=== PATIENT | female | born 1975 | race Hispanic/Latino ===

== ENCOUNTER 2017-01-14 03:53 | Outpatient (CLI) | payer BC | END 2017-01-14 03:54 | disposition home or self-care (01) | LOC: BICULT 03:53 | PROVIDERS: ATTEND Family Medicine | DX: Z53.9 Procedure and treatment not carried out, unspecified reason (principal) ==

== ENCOUNTER 2017-08-12 13:27 | Outpatient (CLI) | payer BC | END 2017-08-12 13:28 | disposition home or self-care (01) | LOC: BICULT 13:27 | PROVIDERS: ATTEND Family Medicine | DX: N92.0 Excessive and frequent menstruation with regular cycle (principal) | CPT/HCPCS: 76856 ==

== ENCOUNTER 2017-11-26 10:10 | Emergency (ER) | payer BC ==
[2017-11-26 10:53] LABS: #Basophils 0.1 thou/uL (0.0-0.2); #Eosinphils 0.1 thou/uL (0.0-0.7); #Neutrophils 6.1 thou/uL (1.40-6.50); %Basophils 0.8 % (0.0-1.0); %Eosinophils 1.5 % (0.0-10.0); %Lymphocytes 21.2 % (21.0-51.0); %Monocytes 10.4 % (0.0-10.0); Hemoglobin 12.6 g/dL (12.0-16.0); Mean Corpuscular HGB CONC 33.9 g/dL (32.0-36.0); Mean Corpuscular Hemoglobin 31.4 pg (27.0-31.0); Mean Corpuscular Volume 92.7 fL (78.0-98.0); Mean Platelet Volume 6.5 fL (7.4-10.4); Platelet Count 262 thou/uL (130-400); RBC Distribution Width 11.9 % (11.5-14.5); Red Blood Cell (RBC) Count 4.01 mill/uL (4.20-5.40); White Blood Cell (WBC) Count 9.2 thou/uL (4.8-10.8)
[2017-11-26] MEDS ORDERED: Ketorolac Tromethamine 60 MG/2 ML VIAL ONE (11:02)
[2017-11-26] MEDS ORDERED: Dexamethasone 4 MG TAB ONE (11:02)
[2017-11-26 11:12] LABS: ALT (SGPT) 16 U/L (8-55); AST (SGOT) 13 U/L (5-34); Albumin 3.9 g/dL (3.5-5.0); Alkaline Phosphatase 88 U/L (40-150); Anion Gap 10 mmol/L (10-20); BUN (Urea Nitrogen) 6 mg/dL (7.0-18.7); Bilirubin, Total 0.5 mg/dL (0.2-1.2); Calc. Creatinine Clearance 0 mL/min (70-130); Carbon Dioxide 25 mmol/L (22-29); Chloride 105 mmol/L (98-107); Estimated GFR-MDRD 74; Globulin 3.5 g/dL (2.4-3.5); Glucose 121 mg/dL (70-105); Potassium 3.9 mmol/L (3.5-5.1); Protein, Total 7.4 g/dL (6.0-8.3); Sodium 136 mmol/L (136-145)
[2017-11-26] MEDS ORDERED: Dexamethasone 10 MG/ML VIAL ONE (11:12)
[2017-11-26] MEDS ORDERED: Lorazepam 1 MG TAB ONE (12:30)
[2017-11-26 12:33] LABS: Bilirubin Negative (Negative); Blood, Urine Negative (Negative); Clarity CLEAR (Clear); Glucose, Urine (Dipstick) Negative (Negative); Leukocyte Negative (Negative); Nitrite Negative (Negative); Protein, Urine (Dipstick) Negative (Neg-Trace); Specific Gravity, Urine 1.013 (1.002-1.036); pH, Urine 5.5 (5.0-9.0)
[2017-11-26 12:34] LABS: Pregnancy Test - Urine (BHCG) Negative (Negative)
[2017-11-26 12:35] LABS: Pregu Control Background? CLEAR/WHITE (CLR/WHITE); Pregu Control Bar Appear? YES (CONTROL BAR); Specific Gravity 1.012 (1.002-1.036)
[2017-11-26] MEDS ORDERED: Ondansetron PF 4 MG/2 ML Vial ONE (12:59)
--- NOTE | 2017-11-26 13:56 | CT ---
CT FACE WITH CONTRAST: INDICATIONS: Left-sided facial swelling. FINDINGS: There is inflammatory stranding surround the left parotid gland. The left parotid gland is slightly hypertrophied in relationship to the right. There are numerous enlarged lymph nodes involving the le ft parotid gland. One is seen within the superficial lobe on image 37 of series 2, measuring 1.2 cm. An additional is seen within the lower deep lobe, measuring 1.1 cm, on image 50 of series 2. There is an enlarged left 1B lymph node, measuring 1.3 cm. There is some reticulation and thickening of t he overlying left aspect of the platysma. No drainable fluid collection is evident. The visualized intracranial contents, orbits, and paranasal sinuses are clear. The mastoid air cells are clear. No acute osseous abnormality is evident. No visible stone is seen along the course of Stensen's duct. IMPRESSION: 1. Left-sided unilateral parotitis without evidence of obstructing stone. 2. Suspected reactive lymphadenopathy of the neck. POS: DELMY
[2017-11-26] MEDS ORDERED: ISOVUE-370 76%-LOCM 1 ML ONE (16:07)
== END 2017-11-26 13:59 | disposition home or self-care (01) ==
LOC: ERS 10:10
DX: K11.20 Sialoadenitis, unspecified (principal); E03.9 Hypothyroidism, unspecified; F41.9 Anxiety disorder, unspecified; Z79.899 Other long term (current) drug therapy
CPT/HCPCS: 70487; 80053; 81003; 81025; 85025; 96372; J1100; J1885; J2405; J8540

== ENCOUNTER 2017-12-10 10:37 | Outpatient (CLI) | payer BC ==
[2017-12-10 11:02] LABS: Mean Corpuscular HGB CONC 33.2 g/dL (32.0-36.0); Mean Corpuscular Hemoglobin 30.9 pg (27.0-31.0); Mean Corpuscular Volume 93.3 fL (78.0-98.0); Mean Platelet Volume 6.4 fL (7.4-10.4); Platelet Count 359 thou/uL (130-400); Red Blood Cell (RBC) Count 4.19 mill/uL (4.20-5.40)
[2017-12-10 11:26] LABS: BHCG - Serum Negative (NEGATIVE); Pregs Control Background? CLEAR/WHITE (CLR/WHITE); Pregs Control Bar Appear? YES (CONTROL BAR)
== END 2017-12-10 10:38 | disposition home or self-care (01) ==
LOC: LABBT 10:37
PROVIDERS: ATTEND Obstetrics & Gynecology
DX: Z01.812 Encounter for preprocedural laboratory examination (principal); N92.0 Excessive and frequent menstruation with regular cycle
CPT/HCPCS: 84703; 85027; 86850; 86900; 86901

== ENCOUNTER 2017-12-10 11:00 | Inpatient (IN) | payer BC ==
[2017-12-10 11:17] VITALS: BMI 37.8
--- NOTE | 2017-12-10 12:08 | HP ---
: 1975 DATE OF PROCEDURE: 12/16/2017 HISTORY OF PRESENT ILLNESS: Ms. Rose is a 42-year-old Latin-[place] female G0 with a long history of heavy menstrual bleeding. She has used oral contraceptive patch Ortho Evra and has continued to s aturate a pad hourly on her heavy days. She has had a normal transvaginal ultrasound evaluation of t he uterus 08/12/2017 with no abnormalities noted. No adnexal masses seen. Her Pap and HPV were also normal. She desires no more menses nor . She was offered endometrial ablation, but was no t guaranteed amenorrhea with this which she strongly desires. PAST MEDICAL HISTORY: Hypothyroidism. PAST SURGICAL HISTORY: Cholecystectomy and knee surgery. SOCIAL HISTORY: She is a nonsmoker. No excessive alcohol use. FAMILY HISTORY: Diabetes in her siblings and father and hypertension in her brother. ALLERGIES: She has allergies to a PENICILLIN which causes respiratory issues. PHYSICAL EXAMINATION: VITAL SIGNS: Height is 5 feet 4 inches, weight 224 pounds with a BMI of 38.4, blood pressure is norm otensive 120/74, pulse 82, respirations 18. HEENT: Within normal limits. NECK: Supple, no thyromegaly or masses. CHEST: Clear to auscultation. HEART: Regular rate and rhythm. S1, S2 heart sounds. ABDOMEN: Soft, nontender, nondistended. No palpable masses. PELVIC: Vulva and vagina had no lesions. Bladder and urethra with normal meatus. No urethral disch arge or mass. No bladder tenderness. Vagina had no lesions. No cystocele or rectocele. Cervix was grossly normal. No discharge or cervical motion tenderness. Uterus is small, nontender. Adnexa we re nontender with no masses. ASSESSMENT: This is a 42-year-old female with menorrhagia unresponsive to medical man agement strongly desires amenorrhea state. PLAN: The plan is to proceed with robotic total laparoscopic hysterectomy with bilateral salpingecto my. Risks and benefits of procedure discussed in detail. Set for surgery on 12/16/2017.
[2017-12-16] MEDS ORDERED: CeleCOXIB 100 MG CAP ONE (06:09)
[2017-12-16] MEDS ORDERED: Famotidine/PF 20 mg/2ml Vial ONE (06:10)
[2017-12-16] MEDS ORDERED: Gabapentin 300 MG CAP ONE (06:10)
[2017-12-16] MEDS ORDERED: Clindamycin/D5W 900 mg/50 ml Premix Bag ONE (06:11)
[2017-12-16] MEDS ORDERED: Levofloxacin 500 mg/D5W 100 ml Premix Bag ONE (06:11)
[2017-12-16] MEDS ORDERED: Scopolamine 1.5 mg/72 hour Patch ONE (06:45)
[2017-12-16] MEDS ORDERED: Fentanyl 100 MCG/2 ML VIAL ONE ×3 (06:57→11:07)
[2017-12-16] MEDS ORDERED: Bupivacaine HCl 0.5%/Epinephrine 1:200,000/PF 30 ml Vial ONE (06:58)
[2017-12-16] MEDS ORDERED: Midazolam HCl 2 mg/2 ml Vial ONE (07:11)
[2017-12-16] MEDS ORDERED: Meperidine HCl/PF 25 MG/ML VIAL SLOW IVP PRN (10:06)
[2017-12-16] MEDS ORDERED: Promethazine HCl 25 MG/ML VIAL SLOW IVP PRN (10:06)
[2017-12-16] MEDS ORDERED: Promethazine HCl 25 MG/ML VIAL IM PRN ×2 (10:06→12:31)
[2017-12-16] MEDS ORDERED: HYDROmorphone 2 MG/ML VIAL SLOW IVP PRN (10:06)
--- NOTE | 2017-12-16 11:09 | OP ---
DATE OF PROCEDURE: 12/16/2017 PREOPERATIVE DIAGNOSES: 1. A 42-year-old female, G0 with menorrhagia with failed medical management. 2. Desires definitive surgical therapy. PROCEDURE PERFORMED: Robotic total laparoscopic hysterectomy with bilateral salpingectomy. SURGEON: Blanca Michael M.D. PILOT CONTROL OPERATOR: Sanchez Weir D.O. ANESTHESIA: General endotracheal. ESTIMATED BLOOD LOSS: 25 mL. COMPLICATIONS: None. COUNTS: Correct x2. ANTIBIOTICS: Two grams Ancef instrumentation manager to the OR. FINDINGS: 1. Normal-appearing bilateral fallopian tubes and ovaries. 2. Globular shaped uterus suggestive of adenomyosis. 3. Clear urine present in Huang catheter post-procedure and bilateral ureteral peristalsis visualize d post-procedure. DISPOSITION: To the recovery room stable. DESCRIPTION OF OPERATIVE PROCEDURE: The patient previously received informed consent in regards to daisy umana. She was taken back to the operating room where she received a general endotracheal anestheti c agent without complications. Then, she was placed in the dorsal lithotomy position with use of All en stirrups and prepped and draped in usual sterile fashion. A sidearm speculum was placed in the va elias after Huang catheter had been placed. The anterior lip of cervix grasped with a single-tooth te naculum. The uterus sounded to 8 cm and a size 8 cm BRII uterine manipulator with a 3.5 cm cervical cup was then chosen and placed in the usual fashion. Tenaculum and speculum were then removed. Atte ntion was then turned to the abdomen where perspective trocar sites were infiltrated with 0.5% Marcai ne with epinephrine. A 12 mm supraumbilical incision was made. Veress needle was entered into the a bdominal cavity and the patient's abdomen was insufflated after appropriate pressures were noted to a patient pressure of 15, approximately 4 liters of carbon dioxide gas. A size 12 mm trocar was then placed in the supraumbilical incision site. The robotic laparoscope was introduced through the troca r sleeve confirming proper entry. Additional bilateral lower quadrant 8 mm trocars were placed under laparoscopic guidance along with the right upper quadrant 11 mm trocar. The patient was in the [place] position, the robot was docked in usual fashion. I proceeded to carry out the surgical pro cedure from the operative console while my assistants remained at the bedside. The uterus was elevat ed from the pelvis with the previously mentioned findings. The left fallopian tube was grasped by my dental assistant instructor with atraumatic grasper and then I bipolar fenestrate cauterized the mesosalpinx starting from the fimbria towards the cornua. The mesosalpinx was incised with monopolar scissors and the tub e was then removed through the right upper quadrant port. The left uterine ovarian ligament was then coagulated and transected and then serial coagulation bipolar fenestrated cautery to the left round ligament was carried out with the incisions incising and excision into the left round ligament was re ached. It was transected and then the anterior leaf of the broad ligament was entered. The vesicout erine peritoneum was then incised in a layering technique dropping the bladder safely past the cervic al vaginal angle that was visualized by indention of the cervical cup. The left uterine vessels were skeletonized and coagulated internal cervical os region. This was carried out in likewise fashion o n the right side of the uterus again coagulating the mesosalpinx and transecting it, removing the rig ht fallopian tube, then coagulating the right uterine ovarian ligament, transecting it with serial co agulation and transection to the right round ligament being reached. Again, the anterior leaf of the broad ligament was entered and the vesicouterine peritoneum was incised in a layering technique drop ping again the bladder past the cervical vaginal angle. The right uterine vessels again were skeleto nized and coagulated internal cervical os. The anterior colpotomy was then created from 12 to 3 and 12 and 9 o'clock position, coagulating the uterine vessels in the 3 and 9 o'clock position again comp leting the posterior colpotomy from 6 to 3 and 6 to 9 in likewise fashion. The specimen was then del ivered into the vaginal vault. The vaginal cuff was closed after the monopolar scissors were switche d out with an [employer] needle explosives truck driver. The vaginal cuff was closed in full thickness closure starting at the right angle towards the left angle and back towards the midline with a Stratafix suture. Hemost asis was confirmed. The pelvis was irrigated with saline and all the pedicle sites were confirmed to be hemostatic. The trocar sleeves were then removed after the robot was undocked. A deep stitch of 0 Vicryl was placed in a [id number] stitch fashion and the fascial defect in the umbilicus and the remainder of the trocar sites were closed with 4-0 Monocryl with Dermabond. The specimen had bee n removed from the vagina. The vaginal cuff was inspected and hemostasis confirmed, but there was so me bleeding from some lacerations from removal of the uterine vessels in the posterior introitus in t he right opening of the vagina at approximately 2 o'clock in [id number] sutures of 3-0 chromic w ere placed under direct visualization securing hemostasis. The Huang was draining clear urine. The patient was awakened from anesthesia and transferred to the recovery in stable condition.
[2017-12-16] MEDS ORDERED: traMADol HCl 50 MG TAB PO PRN ×2 (12:31)
[2017-12-16] MEDS ORDERED: Simethicone Chewable 80 MG TAB PO PRN (12:31)
[2017-12-16] MEDS ORDERED: diphenhydrAMINE 25 MG CAP PO PRN (12:31)
[2017-12-16] MEDS ORDERED: Ondansetron PF 4 MG/2 ML Vial ONE (15:01)
[2017-12-16] MEDS ORDERED: Metoclopramide HCl 10 MG/2 ML VIAL ONE (15:01)
[2017-12-16] MEDS ORDERED: Ketorolac Tromethamine 30 MG/ML VIAL ONE (15:01)
[2017-12-16] MEDS ORDERED: Lidocaine 1% PF 5 ML VIAL ONE (15:01)
[2017-12-16] MEDS ORDERED: Glycopyrrolate 0.2 MG/ML 5 ML SYRINGE ONE (15:01)
[2017-12-16] MEDS ORDERED: ePHEDrine/0.9% NaCl/PF SYRINGE 50 mg/10 ml ONE (15:01)
[2017-12-16] MEDS ORDERED: PROPOFOL 200 MG/20 ML VIAL ONE (15:01)
[2017-12-16] MEDS: Ketorolac Tromethamine 30 MG/ML VIAL IVP SCH ×2 (15:07→20:44)
[2017-12-16] MEDS: Lactated Ringer's 1,000 ML IV SCH ×2 (15:11→20:49)
[2017-12-16] MEDS: Ondansetron PF 4 MG/2 ML Vial IVP PRN ×2 (15:13→20:44)
[2017-12-16] MEDS ORDERED: Hydrocodone-Acetamin 15 ML UDCUP PO PRN ×2 (16:40→16:41)
[2017-12-16] MEDS ORDERED: Acetaminophen 1,000 MG in Premix Bag 1 BAG IVPB PRN (16:42)
[2017-12-16] MEDS ORDERED: Ibuprofen 800 MG TAB PO SCH (21:00)
[2017-12-17] MEDS: Ketorolac Tromethamine 30 MG/ML VIAL IVP SCH ×2 (01:09→09:15)
[2017-12-17] MEDS: Lactated Ringer's 1,000 ML IV SCH (04:01)
[2017-12-17 05:55] LABS: Hemoglobin 11.2 g/dL (12.0-16.0); Mean Corpuscular HGB CONC 32.2 g/dL (32.0-36.0); Mean Corpuscular Hemoglobin 30.5 pg (27.0-31.0); Mean Corpuscular Volume 94.6 fL (78.0-98.0); Mean Platelet Volume 7.1 fL (7.4-10.4); Platelet Count 285 thou/uL (130-400); RBC Distribution Width 12.5 % (11.5-14.5); Red Blood Cell (RBC) Count 3.66 mill/uL (4.20-5.40); White Blood Cell (WBC) Count 5.7 thou/uL (4.8-10.8)
[2017-12-17] MEDS ORDERED: Levothyroxine 150 MCG TAB PO SCH (06:00)
--- NOTE | 2017-12-17 07:52 | PDOC.EVN ---
Event Note - Event Note Event Note: Good pain control. Tolerating diet. Voiding. O:AFVSS HCT 35% trochar sites clean and ry. Active bowel sounds. A/P post op day 1 from robotic tlh. Doing well. D/c home with f/u in 2 and 6 weeks.
[2017-12-17 08:26] VITALS: BP 131/62; TEMP 98.3
--- NOTE | 2017-12-21 15:24 | DIS ---
DATE OF ADMISSION: 12/16/2017 DATE OF DISCHARGE: 12/17/2017 DIAGNOSIS: Menorrhagia, unresponsive to medical management. PROCEDURE PERFORMED: Robotic total laparoscopic hysterectomy and bilateral salpingectomy. SUMMARY OF HOSPITAL COURSE: Ms. Rose is a 42-year-old Latin-[place] female G0 who had ongoing leland rrhagia issues that was unresponsive to oral contraceptives and NSAIDs. She was offered endometrial ablation, but desired definitive surgical therapy and underwent an uncomplicated robotic TLH on 12/16. Postoperatively, the patient did well. Her vital signs were stable. Hematocrit was postop d ay #1 was appropriate 34%. She was ambulating, voiding without difficulty. Discharged in the [facility] of postop day #1. DISCHARGE MEDICATIONS: Will be [id number] ibuprofen 600-800 mg q.8 hours and tramadol 50 mg q. 6 hours p.r.n. pain. She has to followup 2 and 6 weeks postop.
[2017-12-21] MEDS ORDERED: Ibuprofen 800 MG TAB PO SCH (21:00)
== END 2017-12-17 09:18 | disposition home or self-care (01) | DRG 743 ==
LOC: SURG A 12-16 06:04 → 3SE 12-16 12:25
PROVIDERS: ADMIT Obstetrics & Gynecology; ATTEND Obstetrics & Gynecology
PROC: 0UT9FZZ Resection of Uterus, Via Natural or Artificial Opening With Percutaneous Endoscopic Assistance (ICD-10-PCS; principal; 2017-12-16)
PROC: 0UT7FZZ Resection of Bilateral Fallopian Tubes, Via Natural or Artificial Opening With Percutaneous Endoscopic Assistance (ICD-10-PCS; 2017-12-16)
PROC: 8E0W4CZ Robotic Assisted Procedure of Trunk Region, Percutaneous Endoscopic Approach (ICD-10-PCS; 2017-12-16)
DX: N92.0 Excessive and frequent menstruation with regular cycle (principal)
CPT/HCPCS: 36415; 85027; 88307; J0131; J0670; J1885; J1956; J2250; J2405; J3010; J3490; Q9968; S0028

== ENCOUNTER 2019-02-18 13:03 | Outpatient (CLI) | payer BC ==
--- NOTE | 2019-02-18 14:05 | ULT ---
RENAL ULTRASOUND HISTORY: Chronic kidney disease COMPARISON: None FINDINGS: Right Kidney: Size: 8.8 x 4.4 x 4.1 cm. Abnormality: Normal cortical echotexture. No hydronephrosis. Left Kidney: Size: 10.8 x 5.7 x 5.1 cm Abnormality: Normal cortical echotexture. No hydronephrosis Urinary bladder: Prevoid bladder volume of 35.7 cc. IMPRESSION: No focal renal lesion or hydronephrosis.
== END 2019-02-18 13:04 | disposition home or self-care (01) ==
LOC: BICULT 13:03
PROVIDERS: ATTEND Internal Medicine Nephrology
DX: N18.3 Chronic kidney disease, stage 3 (moderate) (principal)
CPT/HCPCS: 76770

== ENCOUNTER 2019-11-17 15:13 | Outpatient (CLI) | payer BC | END 2019-11-17 15:14 | disposition home or self-care (01) | LOC: BICMAMMO 15:13 | PROVIDERS: ATTEND Family Medicine | DX: Z12.31 Encounter for screening mammogram for malignant neoplasm of breast (principal) | CPT/HCPCS: 77063; 77067 ==

== ENCOUNTER 2024-09-28 12:23 | Outpatient (CLI) | payer BC | END 2024-09-28 12:24 | disposition home or self-care (01) | LOC: BICMAMMO 12:23 | PROVIDERS: ATTEND Nurse Practitioner Family | DX: Z12.31 Encounter for screening mammogram for malignant neoplasm of breast (principal) | CPT/HCPCS: 77063; 77067 ==

== ENCOUNTER 2024-10-07 07:58 | Outpatient (CLI) | payer BC | END 2024-10-07 07:59 | disposition home or self-care (01) | LOC: BICULT 07:58 | PROVIDERS: ATTEND Nurse Practitioner Family | DX: R74.8 Abnormal levels of other serum enzymes (principal) | CPT/HCPCS: 76705 ==